=== PATIENT | male | born 1975 | race Caucasian/White ===

== ENCOUNTER 2024-09-15 15:00 | Outpatient (REF) | payer OTHER, SELFPAY ==
[2024-09-15 16:04] LABS: Anion Gap 12 (12-20); Blood Urea Nitrogen 16 mg/dL (9-16); Calcium 9.3 mg/dL (8.4-10.2); Carbon Dioxide 24 mmol/L (22-29); Chloride 107 mmol/L (96-108); Estimated Glomerular Filt Rate > 60; Glucose Random 119 mg/dL (60-115); Potassium 3.9 mmol/L (3.3-5.1); Sodium 139 mmol/L (135-145)
[2024-09-15 16:06] LABS: Estimated Average Glucose 140 mg/dL; Hemoglobin A1C 180.1767 umol/L; Hemoglobin A1c % 6.5 % (<6.0); Total Hemoglobin (HGBA1C) 3790.7334 umol/L
[2024-09-15 16:41] LABS: Folate 9.5 ng/mL (> or = 4.0); Vitamin B12 697 pg/mL (200-900)
--- OUTSIDE RECORDS SUMMARY | 2024-09-15 17:49 | XMS_ITS | Clinical Summary ---
Author Organization Unknown Care Team Providers Care Microfilm Processor Name Role Phone SYLVIE WYMAN MD, JENI Unavailable U eliz KANG RN, NIA Unavailable Unavailable TAYLOR VALENCIA, RITA Unavailable Unavailable Payers Payer Name Policy Type Policy Number Effective Date Expira tion Date [facility] [id number] MEDICAID [place] [id number] MEDIC[place] - [place] [id number] Problems Condition Name Condition Details Condition Category Status Onset Date Resolution Date Last Treatment Date Treating Clinician Comments SCHIZOPHRENI A, UNSPECIFIED Active 09-01 00:00: 00 MAJOR DEPRESSIVE DISORDER, SINGLE EPISODE, UNSPECIFIED Active 09-01 00:00: 00 ANXIETY DISORDER, UNSPECIFIED Active 05-20 00:00: 00 ESSENTIAL (PRIMARY) HYPERTENSION Active 09-01 00:00: 00 CHRONIC OBSTRUCTIVE PULMONARY DISEASE, UNSPECIFIED Active 09-01 00:00: 00 NICOTINE DEPENDENCE, UNSPECIFIED, UNCOMPLICATE D Active 09-01 00:00: 00 ACUTE HEPATITIS C WITHOUT HEPATIC COMA Active 09-01 00:00: 00 GASTRO-ESOPH AGEAL REFLUX DISEASE WITHOUT ESOPHAGITIS Active 09-01 00:00: 00 Allergies, Adverse Reactions, Alerts Allergy Name Allergy Type Status Severity Reaction(s) Onset Date Inactive Date Treating Clinician Comments PCN. Propensity to adverse reactions Active 2018-10 20:52:2 1 Medications Ordered Medication Name Filled Medication Name Start Date Stop Date Current Medication? Ordering Clinician Indication Dosage Frequency Signature (SIG) Comments Components Abilify 15 mg tablet 11-24 00:00: 00 Yes [id number] 15 mg DAILY 15 mg DAILY (route: oral) Med Classific ation: Central Nervous System Agents Carafate 1 gram tablet 11-24 00:00: 00 05-09 23:59 :00 No [id number] 1 tablet 4 TIMES DAILY 1 tablet 4 TIMES DAILY (route: oral) Med Classific ation: Gastroint estinal Therapy Agents clozapine 100 mg tablet 11-24 00:00: 00 Yes [id number] 6 tablet BEDTIME 6 tablet BEDTIME (route: oral) Med Classific ation: Central Nervous System Agents hydroxyzine HCl 25 mg tablet 2018-09 00:00: 00 Yes [id number] 1 tablet 3 TIMES DAILY 1 tablet 3 TIMES DAILY (route: oral) Med Classific ation: Central Nervous System Agents omeprazole 20 mg capsule,del ayed release 11-24 00:00: 00 Yes [id number] 1 capsule DAILY 1 capsule DAILY (route: oral) Med Classific ation: Gastroint estinal Therapy Agents ibuprofen 600 mg tablet 11-30 00:00: 00 Yes [id number] 1 tablet 3 TIMES DAILY 1 tablet 3 TIMES DAILY (route: oral) Med Classific ation: Analgesic , Anti-infl ammatory or Antipyret ic metformin 500 mg tablet 11-30 00:00: 00 Yes [id number] 1 tablet 2 TIMES DAILY 1 tablet 2 TIMES DAILY (route: oral) Med Classific ation: Endocrine Vital Signs Vital Name Observation Time Observation Value Commen ts Pulse 2024-08-23 08:11:00.000 94 /min O2 Saturation (%) 2024-08-23 08:12:00.000 99 % Respirations 2024-08-23 08:11:00.000 18 /min Systolic Blood Pressure 2024-08-23 08:11:00.000 145 mm [Hg] Diastolic Blood Pressure 2024-08-23 08:11:00.000 88 mm [Hg] Plan of Treatment Planned Activity Planned Date Details Comments Future Scheduled Test SKILLED NU RSE TO EVALUATE PATIENT, IDENTIFY PRIMARY AND CO-MORBID CONDITIONS CODED PER CODING GUIDELINES, AND DEVELOP PATIENT SPECIFIC PLAN OF CARE THAT INCLUDES PATIENT GOAL FOR HOME HEALTH. [code = SKILLED NURSE TO EVALUATE PATIENT, IDENTIFY PRIMARY AND CO-MORBID CONDITIONS CODED PER CODING GUIDELINES, AND DEVELOP PATIENT SPECIFIC PLAN OF CARE THAT INCLUDES PATIENT GOAL FOR HOME HEALTH.] Future Scheduled Test SKILLED NU RSE TO PERFORM HOME SAFETY AND FALL ASSESSMENT AND PROVIDE INSTRUCTION TO IMPLEMENT HOME SAFETY AND FALL PREVENTION STRATEGIES. [code = SKILLED NURSE TO PERFORM HOME SAFETY AND FALL ASSESSMENT AND PROVIDE INSTRUCTION TO IMPLEMENT HOME SAFETY AND FALL PREVENTION STRATEGIES.] Future Scheduled Test SKILLED NU RSE FOR OBSERVATION AND ASSESSMENT OF PATIENTS PAIN LEVEL AND EFFECTIVENESS OF PAIN MANAGEMENT REGIMEN. SKILLED NURSE TO INSTRUCT PATIENT/CAREGIVER REGARDING PHARMACOLOGIC AND NON-PHARMACOLOGIC PAIN CONTROL MEASURES. SKILLED NURSE TO REPORT TO PHYSICIAN IF PAIN IS UNCONTROLLED WITH CURRENT PAIN MANAGEMENT REGIMEN. [code = SKILLED NURSE FOR OBSERVATION AND ASSESSMENT OF PATIENTS PAIN LEVEL AND EFFECTIVENESS OF PAIN MANAGEMENT REGIMEN. SKILLED NURSE TO INSTRUCT PATIENT/CAREGIVER REGARDING PHARMACOLOGIC AND NON-PHARMACOLOGIC PAIN CONTROL MEASURES. SKILLED NURSE TO REPORT TO PHYSICIAN IF PAIN IS UNCONTROLLED WITH CURRENT PAIN MANAGEMENT REGIMEN.] Future Scheduled Test SKILLED NU RSE TO ASSESS PATIENT'S SKIN INTEGRITY AND INSTRUCT PATIENT/CAREGIVER ON MEASURES TO PREVENT PRESSURE ULCERS. [code = SKILLED NURSE TO ASSESS PATIENT'S SKIN INTEGRITY AND INSTRUCT PATIENT/CAREGIVER ON MEASURES TO PREVENT PRESSURE ULCERS.] Future Scheduled Test PATIENT JANSEN S A RISK OF HOSPITALIZATION AND ED USE. SKILLED NURSE TO ESTABLISH SUPPORT MEASURES TO MINIMIZE RISK OF HOSPITALIZATION AND ED USE, AND INSTRUCT PATIENT/CAREGIVER ON METHODS TO REDUCE AVOIDABLE HOSPITALIZATION AND ED USE. [code = PATIENT HAS A RISK OF HOSPITALIZATION AND ED USE. SKILLED NURSE TO ESTABLISH SUPPORT MEASURES TO MINIMIZE RISK OF HOSPITALIZATION AND ED USE, AND INSTRUCT PATIENT/CAREGIVER ON METHODS TO REDUCE AVOIDABLE HOSPITALIZATION AND ED USE.] Future Scheduled Test SKILLED NU RSE TO PROVIDE INSTRUCTION TO PATIENT/CAREGIVER RELATED TO DISCHARGE PLANNING. [code = SKILLED NURSE TO PROVIDE INSTRUCTION TO PATIENT/CAREGIVER RELATED TO DISCHARGE PLANNING.] Future Scheduled Test SKILLED NU RSE TO O/A OF PATIENTS MENTAL/BEHAVIORAL STATUS, ASSESS VITAL SIGNS DAILY AND ALLOW 2 PRNS FOR MEDICATION MANAGEMENT. [code = SKILLED NURSE TO O/A OF PATIENTS MENTAL/BEHAVIORAL STATUS, ASSESS VITAL SIGNS DAILY AND ALLOW 2 PRNS FOR MEDICATION MANAGEMENT.] Future Scheduled Test SKILLED NU RSE WILL MAINTAIN SITUATIONAL AWARENESS FOR SAFETY AND WILL NOTIFY CLINICAL COMPRESSOR STATION ENGINEER CHIEF AND PHYSICIAN/PROVIDER WITH ANY CHANGE IN CONDITION. [code = SKILLED NURSE WILL MAINTAIN SITUATIONAL AWARENESS FOR SAFETY AND WILL NOTIFY CLINICAL COMPRESSOR STATION ENGINEER CHIEF AND PHYSICIAN/PROVIDER WITH ANY CHANGE IN CONDITION.] Future Scheduled Test SKILLED NU RSE FOR O/A OF GENERAL HEALTH STATUS OF PAIN, CARDIAC, RESPIRATORY, GASTROINTESTINAL, GENITOURINARY, SKIN, NEUROLOGIC, ENDOCRINE SYSTEMS TO IDENTIFY CHANGES ASSOCIATED WITH EXACERBATION FOR EARLY INTERVENTION OF COMPLICATIONS DAILY [code = SKILLED NURSE FOR O/A OF GENERAL HEALTH STATUS OF PAIN, CARDIAC, RESPIRATORY, GASTROINTESTINAL, GENITOURINARY, SKIN, NEUROLOGIC, ENDOCRINE SYSTEMS TO IDENTIFY CHANGES ASSOCIATED WITH EXACERBATION FOR EARLY INTERVENTION OF COMPLICATIONS DAILY] Future Scheduled Test SKILLED NU RSE TO REVIEW PATIENT MEDICATIONS. INSTRUCT PATIENT/CAREGIVER ON MONITORING OF EFFECTIVENESS, ADVERSE DRUG REACTIONS, SIDE EFFECTS OF ALL MEDICATIONS (PRESCRIPTION/-OTC), AND HOW AND WHEN TO REPORT PROBLEMS. [code = SKILLED NURSE TO REVIEW PATIENT MEDICATIONS. INSTRUCT PATIENT/CAREGIVER ON MONITORING OF EFFECTIVENESS, ADVERSE DRUG REACTIONS, SIDE EFFECTS OF ALL MEDICATIONS (PRESCRIPTION/-OTC), AND HOW AND WHEN TO REPORT PROBLEMS.] Future Scheduled Test SKILLED NU RSE TO ADMINISTER MEDICATIONS DAILY AND PRE-POUR MEDICATIONS PER MEDICATION LIST. [code = SKILLED NURSE TO ADMINISTER MEDICATIONS DAILY AND PRE-POUR MEDICATIONS PER MEDICATION LIST.] Future Scheduled Test SKILLED NU RSE FOR MEDICATION ADMINISTRATION PER MEDICATION LIST TO BE PERFORMED DAILY [code = SKILLED NURSE FOR MEDICATION ADMINISTRATION PER MEDICATION LIST TO BE PERFORMED DAILY] Future Scheduled Test SKILLED NU RSE FOR O/A OF ALTERED THOUGHT PROCESS AND/OR DISRUPTION IN COGNITIVE OPERATIONS AND ACTIVITIES DAILY [code = SKILLED NURSE FOR O/A OF ALTERED THOUGHT PROCESS AND/OR DISRUPTION IN COGNITIVE OPERATIONS AND ACTIVITIES DAILY] Future Scheduled Test SKILLED NU RSE FOR O/A AND SKILLED TEACHING RELATED TO MANAGEMENT OF DEPRESSIVE SYMPTOMS AND/OR DEPRESSION. SN TO REPORT SIGNIFICANT CHANGE IN DEPRESSIVE SYMPTOMS TO CLINICAL PROVIDER FOR EARLY INTERVENTION. [code = SKILLED NURSE FOR O/A AND SKILLED TEACHING RELATED TO MANAGEMENT OF DEPRESSIVE SYMPTOMS AND/OR DEPRESSION. SN TO REPORT SIGNIFICANT CHANGE IN DEPRESSIVE SYMPTOMS TO CLINICAL PROVIDER FOR EARLY INTERVENTION.] Future Scheduled Test SKILLED NU RSE FOR O/A AND SKILLED TEACHING OF COPING SKILLS TO MANAGE ANXIETY AND MAINTAIN SAFETY. [code = SKILLED NURSE FOR O/A AND SKILLED TEACHING OF COPING SKILLS TO MANAGE ANXIETY AND MAINTAIN SAFETY.] Future Scheduled Test SKILLED NU RSE TO ASSESS PATIENTS PSYCHOSOCIAL STATUS TO IDENTIFY POTENTIAL ISSUES THAT MAY COMPLICATE THE PROVISION OF THE PLAN OF CARE INCLUDING THE PATIENTS ABILITY TO ACCESS COMMUNITY RESOURCES AND PSYCHOSOCIAL SUPPORT SERVICES. [code = SKILLED NURSE TO ASSESS PATIENTS PSYCHOSOCIAL STATUS TO IDENTIFY POTENTIAL ISSUES THAT MAY COMPLICATE THE PROVISION OF THE PLAN OF CARE INCLUDING THE PATIENTS ABILITY TO ACCESS COMMUNITY RESOURCES AND PSYCHOSOCIAL SUPPORT SERVICES.] Future Scheduled Test MEDICATION S WILL BE HELD AND STORED IN LOCKBOX [code = MEDICATIONS WILL BE HELD AND STORED IN LOCKBOX] Future Scheduled Test SKILLED NU RSE FOR O/A OF RESPIRATORY SYSTEM TO IDENTIFY CHANGES ASSOCIATED WITH EXACERBATION AND TO PROVIDE SKILLED TEACHING ON MANAGEMENT OF COPD RESPIRATORY DISEASE PROCESS. [code = SKILLED NURSE FOR O/A OF RESPIRATORY SYSTEM TO IDENTIFY CHANGES ASSOCIATED WITH EXACERBATION AND TO PROVIDE SKILLED TEACHING ON MANAGEMENT OF COPD RESPIRATORY DISEASE PROCESS.] Future Scheduled Test SKILLED NU RSE TO INSTRUCT PATIENT/CAREGIVER ON COPD TO INCLUDE TEACHING AND SELF-MANAGEMENT RELATED TO COPD DISEASE PROCESS, SIGNS AND SYMPTOMS, AND COMPLICATIONS. [code = SKILLED NURSE TO INSTRUCT PATIENT/CAREGIVER ON COPD TO INCLUDE TEACHING AND SELF-MANAGEMENT RELATED TO COPD DISEASE PROCESS, SIGNS AND SYMPTOMS, AND COMPLICATIONS.] Future Scheduled Test SKILLED NU RSE FOR O/A AND TEACHING OF ENDOCRINE SYSTEM TO IDENTIFY CHANGES ASSOCIATED WITH EXACERBATION OF DIABETES FOR EARLY INTERVENTION OF COMPLICATIONS. [code = SKILLED NURSE FOR O/A AND TEACHING OF ENDOCRINE SYSTEM TO IDENTIFY CHANGES ASSOCIATED WITH EXACERBATION OF DIABETES FOR EARLY INTERVENTION OF COMPLICATIONS.] Future Scheduled Test SKILLED NU RSE FOR O/A AND TEACHING OF DIABETIC MANAGEMENT INCLUDING BLOOD SUGAR MONITORING/USE OF GLUCOMETER, DIABETIC DIET, LOWER EXTREMITY SKIN INSPECTION, PROPER SKIN/FOOT CARE, AND SIGNS AND SYMPTOMS HYPO/HYPERGLYCEMIA TO REPORT. [code = SKILLED NURSE FOR O/A AND TEACHING OF DIABETIC MANAGEMENT INCLUDING BLOOD SUGAR MONITORING/USE OF GLUCOMETER, DIABETIC DIET, LOWER EXTREMITY SKIN INSPECTION, PROPER SKIN/FOOT CARE, AND SIGNS AND SYMPTOMS HYPO/HYPERGLYCEMIA TO REPORT.] Future Scheduled Test SKILLED NU RSE TO PERFORM AND RECORD BLOOD SUGAR READING DIABETES, AND PRN FOR SIGNS AND SYMPTOMS OF HYPO/HYPERGLYCEMIA. [code = SKILLED NURSE TO PERFORM AND RECORD BLOOD SUGAR READING DIABETES, AND PRN FOR SIGNS AND SYMPTOMS OF HYPO/HYPERGLYCEMIA.] Goal 2019-03-18 Patient Goal - P ATIENT WILL BE COMPLIANT WITH MEDICATIONS AND MANAGEMENT OF PSYCHIATRIC SYMPTOMS Goal 2019-01-19 Patient Goal - P ATIENT WILL BE COMPLIANT WITH MEDICATIONS AND MANAGEMENT OF PSYCHIATRIC Goal 2019-05-18 Patient Goal - P ATIENT WILL BE COMPLIANT WITH MEDICATIONS AND MANAGEMENT OF PSYCHIATRIC SYMPTOMS Goal 2019-07-16 Patient Goal - P ATIENT WILL BE COMPLIANT WITH MEDICATIONS AND MANAGEMENT OF PSYCHIATRIC SYMPTOMS Goal 2019-09-15 Patient Goal - P ATIENT WILL BE COMPLIANT WITH MEDICATIONS AND MANAGEMENT OF PSYCHIATRIC SYMPTOMS Goal 2019-11-15 Patient Goal - P ATIENT WILL BE COMPLIANT WITH MEDICATIONS AND MANAGEMENT OF PSYCHIATRIC SYMPTOMS Goal 2020-01-14 Patient Goal - P ATIENT WILL BE COMPLIANT WITH MEDICATIONS AND MANAGEMENT OF PSYCHIATRIC SYMPTOMS Goal 2020-03-15 Patient Goal - P ATIENT WILL BE COMPLIANT WITH MEDICATIONS AND MANAGEMENT OF PSYCHIATRIC SYMPTOMS Goal 2020-05-12 Patient Goal - P ATIENT WILL BE COMPLIANT WITH MEDICATIONS AND MANAGEMENT OF PSYCHIATRIC SYMPTOMS Goal 2020-07-13 Patient Goal - P ATIENT WILL BE COMPLIANT WITH MEDICATIONS AND MANAGEMENT OF PSYCHIATRIC SYMPTOMS Goal 2020-09-11 Patient Goal - P ATIENT WILL BE COMPLIANT WITH MEDICATIONS AND MANAGEMENT OF PSYCHIATRIC SYMPTOMS Goal 2020-11-09 Patient Goal - P ATIENT WILL BE COMPLIANT WITH MEDICATIONS AND MANAGEMENT OF PSYCHIATRIC SYMPTOMS Goal 2021-01-09 Patient Goal - P ATIENT WILL BE COMPLIANT WITH MEDICATIONS AND MANAGEMENT OF PSYCHIATRIC SYMPTOMS Goal 2021-03-09 Patient Goal - P ATIENT WILL BE COMPLIANT WITH MEDICATIONS AND MANAGEMENT OF PSYCHIATRIC SYMPTOMS Goal 2021-05-09 Patient Goal - P ATIENT WILL BE COMPLIANT WITH MEDICATIONS AND MANAGEMENT OF PSYCHIATRIC SYMPTOMS Goal 2021-07-04 Patient Goal - P ATIENT WILL BE COMPLIANT WITH MEDICATIONS AND MANAGEMENT OF PSYCHIATRIC SYMPTOMS Goal 2021-09-03 Patient Goal - P ATIENT WILL BE COMPLIANT WITH MEDICATIONS AND MANAGEMENT OF PSYCHIATRIC SYMPTOMS Goal 2021-11-05 Patient Goal - P ATIENT WILL BE COMPLIANT WITH MEDICATIONS AND MANAGEMENT OF PSYCHIATRIC SYMPTOMS Goal 2021-12-31 Patient Goal - P ATIENT WILL BE COMPLIANT WITH MEDICATIONS AND MANAGEMENT OF PSYCHIATRIC SYMPTOMS Goal 2022-03-01 Patient Goal - P ATIENT WILL BE COMPLIANT WITH MEDICATIONS AND MANAGEMENT OF PSYCHIATRIC SYMPTOMS Goal 2022-05-03 Patient Goal - P ATIENT WILL BE COMPLIANT WITH MEDICATIONS AND MANAGEMENT OF PSYCHIATRIC SYMPTOMS Goal 2022-07-02 Patient Goal - P ATIENT WILL BE COMPLIANT WITH MEDICATIONS AND MANAGEMENT OF PSYCHIATRIC SYMPTOMS Goal 2022-08-30 Patient Goal - P ATIENT WILL BE COMPLIANT WITH MEDICATIONS AND MANAGEMENT OF PSYCHIATRIC SYMPTOMS Goal 2022-10-28 Patient Goal - P ATIENT WILL BE COMPLIANT WITH MEDICATIONS AND MANAGEMENT OF PSYCHIATRIC SYMPTOMS Goal 2022-12-30 Patient Goal - P ATIENT WILL BE COMPLIANT WITH MEDICATIONS AND MANAGEMENT OF PSYCHIATRIC SYMPTOMS Goal 2023-02-25 Patient Goal - P ATIENT WILL BE COMPLIANT WITH MEDICATIONS AND MANAGEMENT OF PSYCHIATRIC SYMPTOMS Goal 2023-04-25 Patient Goal - P ATIENT WILL BE COMPLIANT WITH MEDICATIONS AND MANAGEMENT OF PSYCHIATRIC SYMPTOMS Goal 2023-06-25 Patient Goal - P ATIENT WILL BE COMPLIANT WITH MEDICATIONS AND MANAGEMENT OF PSYCHIATRIC SYMPTOMS Goal 2023-08-27 Patient Goal - P ATIENT WILL BE COMPLIANT WITH MEDICATIONS AND MANAGEMENT OF PSYCHIATRIC SYMPTOMS Goal 2023-10-24 Patient Goal - P ATIENT WILL BE COMPLIANT WITH MEDICATIONS AND MANAGEMENT OF PSYCHIATRIC SYMPTOMS Goal 2023-12-22 Patient Goal - P ATIENT WILL BE COMPLIANT WITH MEDICATIONS AND MANAGEMENT OF PSYCHIATRIC SYMPTOMS Goal 2024-02-19 Patient Goal - P ATIENT WILL BE COMPLIANT WITH MEDICATIONS AND MANAGEMENT OF PSYCHIATRIC SYMPTOMS Goal 2024-04-19 Patient Goal - P ATIENT WILL BE COMPLIANT WITH MEDICATIONS AND MANAGEMENT OF PSYCHIATRIC SYMPTOMS Goal 2024-06-18 Patient Goal - P ATIENT WILL BE COMPLIANT WITH MEDICATIONS AND MANAGEMENT OF PSYCHIATRIC SYMPTOMS Goal 2024-08-17 Patient Goal - P ATIENT WILL BE COMPLIANT WITH MEDICATIONS AND MANAGEMENT OF PSYCHIATRIC SYMPTOMS Goal Patient Goal - P ATIENT WILL BE COMPLIANT WITH MEDICATIONS AND MANAGEMENT OF PSYCHIATRIC SYMPTOMS Goal Provider Goal - A PLAN OF CARE WILL BE ESTABLISHED THAT MEETS PATIENT'S PENITENTIARY NEEDS AND INCLUDES PATIENT GOAL FOR HOME HEALTH. Goal Provider Goal - PATIENT/CAREGIVER WILL VERBALIZE/DEMONSTRATE EFFECTIVE HOME SAFETY AND FALL PREVENTION STRATEGIES THROUGHOUT CERTIFICATION PERIOD. Goal Provider Goal - PATIENT/CAREGIVER WILL DEMONSTRATE UNDERSTANDING OF PHARMACOLOGIC AND NONPHARMACOLOGIC PAIN CONTROL MEASURES AND PATIENT WILL HAVE IMPROVEMENT IN PAIN INTERFERING WITH ACTIVITY EVIDENCED BY PAIN CONTROLLED AT LEVEL OF 2 OR LESS BY END OF CERTIFICATION PERIOD. Goal Provider Goal - PATIENT/CAREGIVER WILL VERBALIZE UNDERSTANDING OF PRESSURE ULCER PREVENTION BY END OF THE EPISODE. Goal Provider Goal - PATIENT WILL HAVE SUPPORT MEASURES ESTABLISHED TO PREVENT HOSPITALIZATION AND ED USE AND PATIENT/CAREGIVER WILL VERBALIZE/DEMONSTRATE METHODS TO REDUCE AVOIDABLE HOSPITALIZATION AND ED USE BY END OF EPISODE. Goal Provider Goal - PATIENT/CAREGIVER WILL VERBALIZE UNDERSTANDING OF DISCHARGE PLANNING INSTRUCTIONS BY DATE OF DISCHARGE. Goal Provider Goal - ALTERED MENTAL/BEHAVIORAL STATUS WILL BE IDENTIFIED PROMPTLY AND INTERVENTION INITIATED QUICKLY TO MINIMIZE ASSOCIATED RISKS THROUGHOUT CERTIFICATION PERIOD. Goal Provider Goal - PATIENT WILL REMAIN SAFE IN THE COMMUNITY AND WILL BE FREE OF DANGER TO SELF AND OTHERS THROUGHOUT THE CERTIFICATION PERIOD. Goal Provider Goal - CHANGE IN GENERAL HEALTH STATUS WILL BE IDENTIFIED AND REPORTED TO PHYSICIAN FOR PROMPT INTERVENTION TO MINIMIZE ASSOCIATED RISKS THROUGHOUT CERTIFICATION PERIOD. Goal Provider Goal - PATIENT/CAREGIVER WILL VERBALIZE UNDERSTANDING OF EDUCATION PROVIDED ON MEDICATIONS BY THE END OF THE CERTIFICATION PERIOD. Goal Provider Goal - PATIENT WILL COMPLY WITH MEDICATION WHEN SKILLED NURSE ADMINISTERS AND PRE-POURS MEDICATION THROUGHOUT CERTIFICATION PERIOD. Goal Provider Goal - PATIENT WILL COMPLY WITH MEDICATION WHEN NURSE ADMINISTERS THROUGHOUT CERTIFICATION PERIOD. Goal Provider Goal - PATIENT WILL BE ABLE TO PERFORM DAILY FUNCTIONS AND HAVE OPTIMAL IMPROVEMENT IN THOUGHT PROCESS THROUGHOUT CERTIFICATION PERIOD. Goal Provider Goal - PATIENT WILL REMAIN SAFE WITHOUT DECOMPENSATION IN DEPRESSIVE CONDITION, WHILE MAINTAINING OPTIMAL LEVEL OF MENTAL HEALTH AND WELL BEING THROUGHOUT CERTIFICATION PERIOD. Goal Provider Goal - PATIENT WILL BE ABLE TO PERFORM DAILY FUNCTIONS AND HAVE OPTIMAL IMPROVEMENT IN LEVEL OF ANXIETY THROUGHOUT CERTIFICATION PERIOD. Goal Provider Goal - PSYCHOSOCIAL NEEDS WILL BE IDENTIFIED AND PLAN IMPLEMENTED TO MINIMIZE RISK THROUGHOUT CERTIFICATION PERIOD. Goal Provider Goal - MEDICATION WILL BE STORED IN LOCKBOX FOR SAFETY. Goal Provider Goal - PATIENT/CAREGIVER WILL VERBALIZE/DEMONSTRATE MANAGEMENT OF COPD RESPIRATORY DISEASE PROCESS. CHANGES IN RESPIRATORY STATUS WILL BE IDENTIFIED AND REPORTED TO PHYSICIAN FOR PROMPT INTERVENTION THROUGHOUT THE CERTIFICATION PERIOD. Goal Provider Goal - PATIENT/CAREGIVER WILL VERBALIZE/DEMONSTRATE KNOWLEDGE AND MANAGEMENT OF COPD BY END OF EPISODE. Goal Provider Goal - PATIENT/CAREGIVER WILL VERBALIZE SIGNS AND SYMPTOMS OF EXACERBATION OF DIABETES TO REPORT TO NURSE/PHYSICIAN THROUGHOUT THE CERTIFICATION PERIOD. Goal Provider Goal - PATIENT/CAREGIVER WILL VERBALIZE/DEMONSTRATE KNOWLEDGE OF DIABETIC MANAGEMENT. CHANGES IN DIABETIC STATUS WILL BE IDENTIFIED AND REPORTED TO PHYSICIAN FOR PROMPT INTERVENTION THROUGHOUT THE CERTIFICATION PERIOD. Goal Provider Goal - BLOOD SUGAR READING WILL BE OBTAINED ORDERED THROUGHOUT CERTIFICATION PERIOD. Progress Notes Progress Notes <paragraph>[Visit Date: 2024 by RITA VAZQUEZ RN]:</paragraph><paragraph>PT HAS NEUROLOGIST APPOINTMENT TODAY FOR COGNATIVE ASSESSMENT. PT HAS STABLE MOOD. BS THIS AM 158. ADMIN AM MEDS. PM MEDS LEFT FOR PT. UTILIZING LOCK BOC FOR SAFETY.</paragraph> <paragraph>[Visit Date: 2024 by RITA VAZQUEZ RN]:</paragraph><paragraph>PT HAS APPOINTMENT AT [facility] [address] [facility]. FATHER TO TRANSPORT. PT COMPLIANT WITH MEDICATIONS EVIDENCED BY MED BOX ACCURACY. PICKED UP MEDICATIONS AT PHARMACY. DENIES AVH, OR SIB. LOCK BOX UTILIZED FOR SAFETY.</paragraph> <paragraph>[Visit Date: 2024 by RITA VAZQUEZ RN]:</paragraph><paragraph>PT AOX3. DX SCHIZOPHRENIA, MDD, DM2, HTN, GERD. PT DENIES AVH AND SIB. UTILIZING LOCK BOX FOR SAFETY. MEDICATION COMPLIANT EVIDENCED BY MED BOX ACCURACY. MEDS PREFILLED AND KEPT IN LOCK BOX. GAIT STEADY. SLEEPING ADEQUATE AMOUNTS. PT IS NON COMPLIANT WITH DIABETIC DIET. EDUCATION PROVIDED. NO DANGEROUS BEHAVIORS NOTED.</paragraph> <paragraph>[Visit Date: 2024 by RITA VAZQUEZ RN]:</paragraph><paragraph>PT WITH STABLE MOOD. MEDICATIONS ADMINISTERED. PM MEDS LEFT FOT NIGHT AND MEDICATIONS LEFT FOR TOMORROW.</paragraph> Encounters Start Date/Time End Date/Time Encounter Type Admission Type Attending Clinicians Care Facility Care Department Encounter ID Discharge Date Discharge Status Discharge Condition Discharge Reason Percent Goals Met 2017-07-30 00:00:00 2024-10-20 00:00:00 Outpatient JANUARYRTR[facility]UR[facility] [id number]
== END 2024-09-15 15:01 | disposition home or self-care (01) ==
LOC: HO.LAB 15:00
PROVIDERS: PCP Internal Medicine; Visit Provider Psychiatry & Neurology Neurology
DX: G31.84 Mild cognitive impairment of uncertain or unknown etiology (principal); Z13.1 Encounter for screening for diabetes mellitus
CPT/HCPCS: 36415; 80048; 82607; 82746; 83036